=== PATIENT | female | born 1975 | race African-American/Black ===

== ENCOUNTER 2019-02-25 18:22 | Emergency (ER) | payer SELFPAY | END 2019-02-25 21:38 | disposition home or self-care (01) | LOC: ERS 18:22 | DX: J06.9 Acute upper respiratory infection, unspecified (principal); F17.210 Nicotine dependence, cigarettes, uncomplicated | CPT/HCPCS: 87804; 99283 ==

== ENCOUNTER 2022-03-15 19:13 | Emergency (ER) | payer SELFPAY ==
[2022-03-15 20:48] LABS: Bacteria/HPF 4+ HPF (None Seen); Bilirubin Negative (Negative); Blood, Urine 2+ (Negative); Clarity Turbid (Clear); Glucose, Urine (Dipstick) Normal (Negative); Ketone, Urine Negative (Negative); Leukocyte Negative Leu/uL (Negative); Nitrite Negative (Negative); Protein, Urine (Dipstick) Negative (Neg-Trace); Specific Gravity, Urine 1.021 (1.002-1.036); Urobilinogen Normal mg/dL (Less than 2)
[2022-03-15 20:49] LABS: Pregnancy Test - Urine (BHCG) Negative (Negative); Pregu Control Background? CLEAR/WHITE (CLR/WHITE); Pregu Control Bar Appear? YES (CONTROL BAR); Specific Gravity 1.021 (1.002-1.036)
[2022-03-15] MEDS ORDERED: Ketorolac Tromethamine 30 MG/ML VIAL ONE (20:59)
[2022-03-15] MEDS ORDERED: Diazepam 5 MG TAB ONE (20:59)
== END 2022-03-15 21:36 | disposition home or self-care (01) ==
LOC: ERS 19:13
DX: M54.50 Low back pain, unspecified (principal); R82.71 Bacteriuria; F17.210 Nicotine dependence, cigarettes, uncomplicated
CPT/HCPCS: 81003; 81015; 81025; 96372; 99283; J1885